=== PATIENT | male | born 1975 | race Hispanic/Latino ===

== ENCOUNTER 2019-11-18 14:46 | Emergency (ER) | payer OTHER ==
[2019-11-18] MEDS ORDERED: FAMOTIDINE 20MG TAB 20 MG TAB ONE (14:55)
[2019-11-18] MEDS ORDERED: PREDNISONE 20 MG TABLET ONE (14:56)
[2019-11-18] MEDS ORDERED: LORATADINE 10 MG TABLET ONE (14:56)
== END 2019-11-18 15:51 | disposition home or self-care (01) ==
LOC: EDH 14:46
DX: T63.441A Toxic effect of venom of bees, accidental (unintentional), initial encounter (principal); Y92.89 Other specified places as the place of occurrence of the external cause

== ENCOUNTER 2023-11-03 15:43 | Emergency (ER) | payer SELFPAY ==
[~2023-11-03] VITALS: Ht 167.6 cm; Wt 61.2 kg
[2023-11-03] MEDS: acetaMINOPHEN 500 MG TABLET PO ONE (17:20)
[2023-11-03] MEDS: CYCLOBENZAPRINE HCL 10 MG TABLET PO ONE (17:20)
[2023-11-03] MEDS: KETOROLAC 60 MG VIAL (30MG/ML) IM ONE (17:21)
[2023-11-03 17:46] VITALS: BP 124/65; PULSE 78; RESP 18; O2SAT 98
[2023-11-03] MEDS ORDERED: BUTA-271 PO (17:48)
== END 2023-11-03 17:53 | disposition home or self-care (01) ==
LOC: EDH 15:43
DX: G44.209 Tension-type headache, unspecified, not intractable (principal); Z90.49 Acquired absence of other specified parts of digestive tract; Z98.890 Other specified postprocedural states
CPT/HCPCS: 99283; 96372; J1885

== ENCOUNTER 2023-11-04 09:44 | Emergency (ER) | payer SELFPAY ==
[~2023-11-04] VITALS: Ht 167.6 cm; Wt 60.3 kg
[~2023-11-04 09:44] MED LIST: BUTA-271 PO
[2023-11-04] MEDS: KETOROLAC 60 MG VIAL (30MG/ML) IM ONE (10:35)
[2023-11-04] MEDS: HYDROcodone/APAP 5/325 1 TAB TABLET PO ONE (10:36)
[2023-11-04 12:55] VITALS: BP 132/76; PULSE 86; RESP 16; O2SAT 100
== END 2023-11-04 13:11 | disposition home or self-care (01) ==
LOC: EDH 09:44
DX: G44.209 Tension-type headache, unspecified, not intractable (principal); Z79.899 Other long term (current) drug therapy; Z90.49 Acquired absence of other specified parts of digestive tract; Z91.148 Patient's other noncompliance with medication regimen for other reason; Z98.890 Other specified postprocedural states
CPT/HCPCS: 99285; 70450; 96372; J1885